=== PATIENT | female | born 1990 | race Two or more races ===

== ENCOUNTER 2023-07-06 14:23 | Emergency (ER) | payer MEDICAID ==
[~2023-07-06] VITALS: Ht 182.9 cm; Wt 81.8 kg
[2023-07-06 14:25] VITALS: PULSE 69; RESP 12; O2SAT 97
[2023-07-06] MEDS: KETOROLAC TROMETH 30 MG/ML 1ML VIAL IM ONE (21:16)
[2023-07-06] MEDS ORDERED: IBUP1TAB5 PO (21:39)
[2023-07-06] MEDS ORDERED: CYCL-839 PO (21:39)
[2023-07-06 21:50] VITALS: BP 122/72
== END 2023-07-06 21:50 | disposition home or self-care (01) ==
LOC: ER 14:23 → EDBD 14:23 → ER 21:50
DX: S09.90XA Unspecified injury of head, initial encounter (principal); M54.2 Cervicalgia; R07.89 Other chest pain; R42 Dizziness and giddiness; Z79.1 Long term (current) use of non-steroidal anti-inflammatories (NSAID); Z79.899 Other long term (current) drug therapy; Z88.8 Allergy status to other drugs, medicaments and biological substances; V43.52XA Car driver injured in collision with other type car in traffic accident, initial encounter; Y93.89 Activity, other specified; Y92.410 Unspecified street and highway as the place of occurrence of the external cause; Y99.8 Other external cause status
CPT/HCPCS: 70450; 72125; 96372; 99285; J1885